=== PATIENT | female | born 1980 | race Caucasian/White ===

== ENCOUNTER → 2024-04-02 16:09 | Outpatient (REF) | payer BC, SELFPAY | LOC: WDC 16:09 | PROVIDERS: ATTENDING PHYSICIAN Nurse Practitioner Adult Health; FAMILY PHYSICIAN Nurse Practitioner Adult Health | DX: Z12.31 Encounter for screening mammogram for malignant neoplasm of breast (principal) | CPT/HCPCS: 77063; 77067 ==

== ENCOUNTER 2024-07-21 12:07 | Emergency (ER) | payer BC, SELFPAY ==
[2024-07-21 12:11] VITALS: BP 172/94
[2024-07-21 13:11] LABS: % Basophils 0.4 % (0-2); % Eosinophils 0.3 % (0-6); % Immature Granulocytes 0.3 % (0-0.5); % Lymphocytes 19.7 % (20.5-51.1); % Monocytes 5.7 % (1.7-9.3); % Neutrophils 73.6 % (42.2-75.2); Absolute Lymphocytes 1.8 10^3/uL (1.2-3.4); Absolute Monocytes 0.5 10^3/uL (0.1-0.6); Absolute Neutrophils 6.6 10^3/uL (1.4-6.5); Hematocrit 37.9 % (37.0-47.0); Hemoglobin 13.4 g/dL (12.0-16.0); Mean Corp Hgb Conc. 35.4 g/dL (33.0-37.0); Mean Corpuscular Hgb 30.2 pg (27.0-31.0); Mean Corpuscular Volume 85.4 fL (81.0-99.0); Mean Platelet Volume 8.7 fL (7.4-10.4); Nucleated Red Blood Cells % 0 %; Platelet Count 286 10^3/uL (130-400); Red Blood Cell Count 4.44 10^6/uL (4.20-5.40); Red Cell Dist. Width 11.7 % (11.5-14.5); White Blood Cell Count 8.9 10^3/uL (4.8-10.8)
[2024-07-21 13:26] LABS: ALT (SGPT) 19 U/L (0-35); AST (SGOT) 25 U/L (14-36); Alkaline Phosphatase 76 U/L (38-126); Blood Urea Nitrogen 14 mg/dl (7-17); Calcium 10.2 mg/dl (8.4-10.2); Carbon Dioxide 22 mmol/L (22-30); Chloride 104 mmol/L (98-107); Glucose 109 mg/dl (70-99); Potassium 3.9 mmol/L (3.5-5.1); Sodium 136 mmol/L (135-145); Total Bilirubin 0.8 mg/dl (0.2-1.3); Total Protein 7.7 g/dl (6.3-8.2); eGFR > 60.00
[2024-07-21 13:37] LABS: Troponin I 0.012 ng/ml
[2024-07-21 14:42] VITALS: BP 158/102
[2024-07-21 15:18] VITALS: BMI 27.0
--- NOTE | 2024-07-21 15:28 | ED.GENMED ---
History of Present Illness
General
Chief Complaint: Chest Pain
Time Seen by Provider: 07/21/24 15:14
History of Present Illness
History of Present Illness:
43-year-old female presents to the emergency department for evaluation of central chest discomfort that is occurred intermittently throughout the day today. It is not pleuritic and it seems to be worse with certain body movements however she cannot
pinpoint the exact activity that worsens her pain. No associated fevers or chills. Mild pain on palpation of the chest. No recent fevers or chills. Does not take any exogenous hormones
Past History
Past History
ED Past Medical History: HTN
ED Past Surgical History: Negative Appendectomy, Bowel resection or Brain
Social History
Tobacco: Non-smoker
Alcohol: None
Drug: None
Personal:
Living: with family
Employment: Employed
Family History
Family History: Hypertension
Review of Systems
Review of Systems
Allergies reviewed?: Yes
All Other Systems: ROS reviewed and negative except as documented in HPI and ROS
Phy Exam
Physical Exam
Physical Exam:
GEN: Well appearing, NAD, WDWN
HEENT: Oral mucosa moist, no scleral icterus
Cardiac: Regular rate and rhythm, no murmur
Lung: No respiratory distress, no tachypnea, lungs clear to auscultation bilaterally
Chest: Moderate reproducible tenderness to palpation of the anterior chest wall
MSK: No gross deformity or injuries
Skin: Good color, no pallor or jaundice, no rashes
Neuro: AO x3, moves all extremities freely
Psych: Calm, cooperative
Scores
Heart Score for Chest Pain Patients
STEMI patient?: No
History: Slightly or Non-Suspicious
ECG: Normal
Age: </= 45 years
Risk Factors: No Risk Factors
Troponin: </= Normal Limit
Heart Score for Chest Pain Patients: 0
Heart Score Risk: 2.5% MACE over next 6 weeks
Course
Orders/Labs/Results
Orders:
Orders
07/21/24 12:08
Electrocardiogram (*1) Urgent
Reason for Study: Chest Pain
EKG- Treatment ONCE
07/21/24 13:04
Complete Blood Count/With Diff Urgent
Comprehensive Metabolic Panel Urgent
Troponin I Urgent
Abnormal Lab Results
07/21/24
13:04
Absolute Neuts (auto) 6.6 H 10^3/uL
(1.4-6.5)
Lymphocytes % 19.7 L %
(20.5-51.1)
Glucose 109 H mg/dl
(70-99)
07/21/24 13:04
07/21/24 13:04
Vital Signs
Initial and Last Documented VS:
Initial Vital Signs
Temp Pulse Resp BP Pulse Ox
97.7 F 125 20 172/94 100
07/21/24 12:11 07/21/24 12:11 07/21/24 12:11 07/21/24 12:11 07/21/24 12:11
Last Documented Vital Signs
Temp Pulse Resp BP Pulse Ox
97.7 F 101 18 158/102 100
07/21/24 12:11 07/21/24 14:42 07/21/24 14:42 07/21/24 14:42 07/21/24 14:42
MDM/Problems Addressed
MDM/Problems Addressed:
EKG does show mild sinus tachycardia, the patient states her heart rate is always a little elevated during medical evaluations due to anxiety. She has no risk factors for DVT or PE. EKG is nonischemic and labs are reassuring. Pain is reproducible
on exam thus most likely represents anterior chest wall pain. Will discuss supportive care and return parameters, no indication for advanced imaging
*Critical Care Note
Total Time (30-74mins, 75-104mins- exclusive of procedures): Not Applicable
ED Attending Note
-
Portions of this chart may have been created with voice recognition software.� Occasional wrong word or��sound alike� substitutions may have occurred due to the inherent limitations of voice recognition software.
Discharge Plan
Departure
Patient Disposition: Home (Routine Discharge)
Date of Disposition: 07/21/24
Time of Disposition: 15:29
Patient with high blood pressure during this ER visit?: No
Discharge Problem:
Atypical chest pain
Instructions: Chest Pain That Is Not Caused by the Heart (DC)
Prescriptions:
No Action
sertraline 25 MG tablet
100 mg PO HS
Vitamins
1 mg PO DAILY
oxycodone-acetaminophen 5 MG/325 MG tablet
1 - 2 tab PO Q3HPRN PRN (Reason: severe pain) Qty: 30 0RF
ibuprofen 600 MG tablet
600 mg PO Q4HPRN PRN (Reason: moderate pain/cramps) Qty: 0 0RF
clindamycin HCl 300 MG capsule
300 mg PO TID Qty: 20 0RF
prednisone 20 MG tablet
20 mg PO DAILY Qty: 5 0RF
Activity Restrictions/Additional Instructions:
Take ibuprofen 400mg every 6-8 hours as needed for pain
Follow up with your primary doctor in 1-2 weeks
Interventions
Interventions:
*Risk Screen - Suicide Last Done: 07/21/24 12:11
*General Assessment Last Done: 07/21/24 12:11
*Neglect/Abuse Screening Last Done: 07/21/24 12:11
ED- Fall Risk Assessment Last Done: 07/21/24 15:18
*ED COVID-19 Vaccine History Last Done: 07/21/24 15:18
*Nursing Disposition Last Done: 07/21/24 15:42
ED- Cardiac Assessment Last Done: 07/21/24 15:18
Discharge Date and Time
Discharge Date/Time: 07/21/24 15:42
Print Language: AZERI
== END 2024-07-21 15:42 | disposition home or self-care (01) ==
LOC: EMR 12:07
PROVIDERS: Emergency Medicine; EMERGENCY PHYSICIAN Student in an Organized Health Care Education/Training Program; FAMILY PHYSICIAN Nurse Practitioner Adult Health
DX: R07.89 Other chest pain (principal)
CPT/HCPCS: 99284; 80053; 84484; 85025; 93005

== ENCOUNTER → 2025-04-08 08:27 | Outpatient (REF) | payer BC, SELFPAY | LOC: WDC 08:27 | PROVIDERS: ATTENDING PHYSICIAN Obstetrics & Gynecology Gynecology; FAMILY PHYSICIAN Nurse Practitioner Adult Health | DX: Z12.31 Encounter for screening mammogram for malignant neoplasm of breast (principal) | CPT/HCPCS: 77063; 77067 ==

== ENCOUNTER → 2025-07-05 08:37 | Outpatient (REF) | payer BC, SELFPAY | LOC: RAD 08:37 | PROVIDERS: ATTENDING PHYSICIAN Nurse Practitioner Adult Health; FAMILY PHYSICIAN Nurse Practitioner Adult Health | DX: R10.20 Pelvic and perineal pain unspecified side (principal) | CPT/HCPCS: 76830; 76856 ==